=== PATIENT | male | born 1975 | race Caucasian/White ===

== ENCOUNTER 2021-11-09 16:05 | Emergency (ER) | payer MEDICAID ==
[~2021-11-09] VITALS: Ht 175.3 cm; Wt 79.0 kg
[~2021-11-09 16:05] MED LIST: AZAT50TA18 PO; BUPR75TA8 PO; CIPR-202 PO; CLON0.1T PO; HYDR-3965 PO; METR-159 PO; OLAN5TAB29 PO; PRED5TAB PO
[2021-11-09 16:32] VITALS: BP 130/102
[2021-11-09 17:29] LABS: CLARITY,URINE CLEAR (Clear); COLOR,URINE BROWN (Yellow); GLUCOSE, URINE 100 mg/dl (Neg); KETONES,URINE TRACE mg/dl (Neg); LEUKOCYTE ESTERASE ,URINE NEGATIVE (Neg); OCCULT BLOOD,URINE MODERATE (Neg); PH,URINE 6.5 (4.8-8.0); PROTEIN,URINE 100 mg/dl (Neg)
[2021-11-09 17:34] LABS: BASOPHILS # (AUTO) 0.1 X10'3 (0-0.2); BASOPHILS % (AUTO) 0.3 % (0-1); EOSINOPHILS # (AUTO) 0.1 X10'3 (0-0.9); EOSINOPHILS % (AUTO) 0.4 % (0-6); HEMATOCRIT 46.2 % (42.0-52.0); HEMOGLOBIN 15.4 g/dl (14.0-17.9); LYMPHOCYTES # (AUTO) 0.7 X10'3 (1.1-4.8); LYMPHOCYTES % (AUTO) 2.1 % (21-51); MEAN CORPUSCULAR HEMOGLOBIN 29.1 PG (27.0-31.0); MEAN CORPUSCULAR HGB CONC 33.3 g/dL (33.0-36.5); MEAN CORPUSCULAR VOLUME 87.3 FL (78-98); MONOCYTES # (AUTO) 2.1 X10'3 (0-0.9); MONOCYTES % (AUTO) 6.4 % (2-12); NEUTROPHILS # (AUTO) 29.8 X10'3 (1.8-7.7); NEUTROPHILS % (AUTO) 90.8 % (42-75); PLATELET COUNT 519 X10'3 (140-440); RED CELL DISTRIBUTION WIDTH 14.6 % (11.5-14.5)
[2021-11-09 17:44] LABS: ALANINE AMINOTRANSFERASE 18 U/L (12-78); ALBUMIN 2.4 G/DL (3.4-5.0); ALBUMIN/GLOBULIN RATIO 0.5 (1.1-1.5); ALKALINE PHOSPHATASE 69 IU/L (46-116); ANION GAP 9 (8-16); ASPARTATE AMINO TRANSFERASE 21 U/L (10-37); BILIRUBIN,TOTAL 1.1 MG/DL (0.1-1.0); BLOOD UREA NITROGEN 6 MG/DL (7-18); BUN/CREATININE RATIO 7.2 (5.4-32.0); CALCIUM 8.1 MG/DL (8.5-10.1); CHLORIDE 103 MMOL/L (99-107); CREATININE 0.83 MG/DL (0.60-1.10); GLUCOSE 141 MG/DL (70-104); LIPASE 77 U/L (73-393); POTASSIUM 3.7 MMOL/L (3.5-5.1); SODIUM 137 MMOL/L (135-145); TOTAL CARBON DIOXIDE 25.1 MMOL/L (24-32); TOTAL PROTEIN 6.8 G/DL (6.4-8.2); WHITE BLOOD COUNT 32.8 X10'3 (4.5-11.0); eGFR > 90 ML/MIN
[2021-11-09 17:52] LABS: UA COLLECTION TYPE CLN CATCH MIDSTREAM
[2021-11-09 17:53] LABS: BACTERIA,URINE FEW /HPF (Neg); MUCUS STRANDS MODERATE /LPF (Neg); NITRITES, URINE NEGATIVE (Neg); SQUAMOUS EPITHELIAL CELL,UR MODERATE /LPF (FEW)
[2021-11-09 18:12] LABS: PLATELET ESTIMATE INCREASED; TOTAL CELLS COUNTED 100
--- NOTE | 2021-11-09 20:30 | NUR ---
PT NOT IN LOBBY
--- NOTE | 2021-11-09 21:40 | NUR ---
call out to pt to return to the ER if he has left, left voicemail. pt not in lobby at this time
--- NOTE | 2021-11-09 23:34 | NUR ---
PT NOT IN LOBBY
[2021-11-10] MEDS ORDERED: CIPR-202 PO ×2 (13:12)
[2021-11-10] MEDS ORDERED: METR-159 PO ×2 (13:12)
== END 2021-11-09 23:38 | disposition left against medical advice (07) ==
LOC: ER 16:05
DX: R10.84 Generalized abdominal pain (principal); Z53.21 Procedure and treatment not carried out due to patient leaving prior to being seen by health care provider
CPT/HCPCS: 36415; 80053; 81001; 83690; 85007; 85025; 87077; 87088; 87186

== ENCOUNTER 2021-11-10 10:43 | Emergency (ER) | payer MEDICAID ==
[~2021-11-10] VITALS: Ht 175.3 cm; Wt 79.5 kg
[2021-11-10] MEDS ORDERED: metroNIDAZOLE-Flagyl 500mg/NS 100 ML IV STA (12:22)
[2021-11-10] MEDS ORDERED: levoFLOXACIN-Levaquin 500mg/D5 100 ML IV ONE (12:25)
[2021-11-10] MEDS ORDERED: normal saline 1000ML IV soln IVB ONE (12:25)
[2021-11-10] MEDS ORDERED: METR-159 PO ×2 (13:12)
[2021-11-10] MEDS ORDERED: CIPR-202 PO ×2 (13:12)
[2021-11-10] MEDS ORDERED: ketorolac trometh. 30mg/ml inj. IV ONE (13:35)
[2021-11-10 14:15] VITALS: BP 132/78
--- NOTE | 2021-11-12 11:19 | NUR ---
Patient was called regarding lab results. Dr. chauhan had orginally gave a written order to prescribe patient an antibiotic if symptomatic. Patient has stated that his symptoms were consistent with history of colitis and that he did not have any urinary symptoms. However, patient did state that he was still have symptoms such as abd pain. I requested that Dr. chauhan speak with patient regarding symptoms. Dr. Chauhan stated that patient did not need to be placed on another antibiotic and that the flagyl and cipro were enough. No new orders would be prescribed at this time for patient. Patient aware that if symptoms worsen that he can return to ER and be re-evaluated.
== END 2021-11-10 14:45 | disposition home or self-care (01) ==
LOC: ER 10:45
DX: K52.9 Noninfective gastroenteritis and colitis, unspecified (principal); Z79.899 Other long term (current) drug therapy
CPT/HCPCS: 96365; 96366; 96368; 96375; 99284; J1885; J1956; J3490; J7030

== ENCOUNTER 2021-11-13 08:06 | Inpatient (IN) | payer MEDICAID ==
[~2021-11-13] VITALS: Ht 175.3 cm; Wt 68.2 kg
[2021-11-13 08:41] LABS: BASOPHILS # (AUTO) 0.1 X10'3 (0-0.2); EOSINOPHILS # (AUTO) 0.1 X10'3 (0-0.9); EOSINOPHILS % (AUTO) 0.2 % (0-6); NEUTROPHILS # (AUTO) 28.6 X10'3 (1.8-7.7); NEUTROPHILS % (AUTO) 90.8 % (42-75)
[2021-11-13 08:42] LABS: BASOPHILS % (AUTO) 0.2 % (0-1); HEMATOCRIT 48.9 % (42.0-52.0); HEMOGLOBIN 16.1 g/dl (14.0-17.9); LYMPHOCYTES % (AUTO) 3.2 % (21-51); MEAN CORPUSCULAR HEMOGLOBIN 28.5 PG (27.0-31.0); MEAN CORPUSCULAR HGB CONC 32.8 g/dL (33.0-36.5); MEAN CORPUSCULAR VOLUME 86.8 FL (78-98); MEAN PLATELET VOLUME 7.9 FL (7.4-10.4); MONOCYTES # (AUTO) 1.8 X10'3 (0-0.9); MONOCYTES % (AUTO) 5.6 % (2-12); PLATELET COUNT 462 X10'3 (140-440); RED BLOOD COUNT 5.64 X10'6 (4.70-6.10)
[2021-11-13] MEDS ORDERED: normal saline 1000ML IV soln IV ONE (08:45)
[2021-11-13] MEDS ORDERED: piperacillin/tazo 3.375gm/50ml 50 ML IV ONE (08:45)
[2021-11-13] MEDS ORDERED: metoclopramide 5 mg/ml inj IV ONE (08:50)
[2021-11-13] MEDS ORDERED: famotidine/PF 10 mg/ml inj IV ONE (08:50)
[2021-11-13 08:53] LABS: ALANINE AMINOTRANSFERASE 21 U/L (12-78); ALBUMIN 2.9 G/DL (3.4-5.0); ALBUMIN/GLOBULIN RATIO 0.6 (1.1-1.5); ALKALINE PHOSPHATASE 83 IU/L (46-116); ANION GAP 9 (8-16); ASPARTATE AMINO TRANSFERASE 38 U/L (10-37); BILIRUBIN,TOTAL 1.3 MG/DL (0.1-1.0); BLOOD UREA NITROGEN 8 MG/DL (7-18); BUN/CREATININE RATIO 7.2 (5.4-32.0); CALCIUM 8.9 MG/DL (8.5-10.1); CHLORIDE 93 MMOL/L (99-107); CREATININE 1.11 MG/DL (0.60-1.10); GLUCOSE 102 MG/DL (70-104); POTASSIUM 3.9 MMOL/L (3.5-5.1); SODIUM 126 MMOL/L (135-145); TOTAL CARBON DIOXIDE 24.4 MMOL/L (24-32); TOTAL PROTEIN 7.9 G/DL (6.4-8.2); eGFR 72 ML/MIN
[2021-11-13 08:56] LABS: WHITE BLOOD COUNT 31.5 X10'3 (4.5-11.0)
[2021-11-13] MEDS ORDERED: IOHEXOL 12MG/ML oral solution 500 ML BOTTLE PO ONE (09:25)
[2021-11-13 09:30] LABS: PLATELET ESTIMATE INCREASED; TOTAL CELLS COUNTED 100
[2021-11-13] MEDS ORDERED: diazepam inj 5 MG/ML inj. IV ONE (12:55)
[2021-11-13] MEDS ORDERED: LIDOcaine 2% 10ml TOPICAL JELLY (Urojet) MM ONE (13:25)
[2021-11-13] MEDS ORDERED: morphine 4 MG/ML inj SYRINge IV ONE (13:35)
--- NOTE | 2021-11-13 14:00 | NUR ---
ATTEMPTED NG WITH A 16 AND 18. UROJET USED. NG WAS UNSUCCESSFUL. MD AWARE. ANOTHER NURSE WILL ATTEMPT. UNABLE TO ADVANCE PAST THE NOSTRIL
--- NOTE | 2021-11-13 14:08 | NUR ---
RELIEVING RN FOR BREAK, PT IS RESTING QUIETLY ON GURNEY, RESP EVEN AND UNLABORED, PT WANTS TO WAIT UNTIL FAMILY IS HERE TO ATTEMPT NGTUBE AGAIN, ANOTHER RN ATTEMPTED 4X PER PT, NO N/V AT THIS TIME
--- NOTE | 2021-11-13 14:28 | NUR ---
ATTEMPTED NGTUBE 2TIMES, NO SUCCESS, UNABLE TO ADVANCE TUBE DUE TO POSSIBLE RESTRICTION IN NOSE
[2021-11-13] MEDS ORDERED: POTASSIUM BICARB 20meq eff tab 20 MEQ TABLET.EFF PO PRN ×2 (14:30)
[2021-11-13] MEDS ORDERED: magnesium 4gm in 100ml NS 100 ML IV PRN (14:30)
[2021-11-13] MEDS ORDERED: magnesium Cl slow-release 64mg tablet PO PRN (14:30)
[2021-11-13] MEDS ORDERED: ondansetron/PF 4mg/2ml inj IV PRN (14:30)
[2021-11-13] MEDS: normal saline 1000ml 1,000 ML IV SCH (14:30)
[2021-11-13] MEDS ORDERED: magnesium 2GM in 50ml NS 50 ML IV PRN (14:30)
[2021-11-13] MEDS ORDERED: potassium CL 10mEq/100ml bag 100 ML IV PRN (14:30)
[2021-11-13 15:09] LABS: MAGNESIUM 1.6 MG/DL (1.5-2.4); POTASSIUM 3.5 MMOL/L (3.5-5.1)
[2021-11-13] MEDS ORDERED: AZAT50TA18 PO (15:56)
[2021-11-13] MEDS ORDERED: CIPR-202 PO (16:23)
[2021-11-13] MEDS ORDERED: PRED5TAB49 PO (16:23)
[2021-11-13] MEDS ORDERED: METR-349 PO (16:23)
--- NOTE | 2021-11-13 16:27 | NUR ---
Patient in room ORTHO 4022. I have received report from Delmi PARTIDA and had the opportunity to ask questions and assume patient care.
[2021-11-13 16:30] VITALS: BP 136/73
--- NOTE | 2021-11-13 16:43 | NUR ---
patient states he is not nauseous or feels like he needs to vomit. Abdomen distended, patient reports 2 liquidy BM in ED. will continue to monitor
--- NOTE | 2021-11-13 17:00 | NUR ---
patients HR 130, temp 100.2 Dr yunior parisi. will continue to monitor.
--- NOTE | 2021-11-13 17:30 | NUR ---
Patient rechecked HR [address] Hampton paged order given for blood cultures, UA, chest xray, and levaquin 500mg Iv. orders placed . report given to Sharmin PARTIDA
[2021-11-13 18:00] VITALS: BP 136/73
[2021-11-13] MEDS: acetaminophen 325mg tablet PO PRN (18:03)
[2021-11-13] MEDS: K and/or MAG REPLACEMENT MC SCH (20:00)
[2021-11-13] MEDS: levoFLOXACIN-Levaquin 500mg/D5 100 ML IV SCH (20:03)
[2021-11-13 21:42] LABS: CLARITY,URINE CLEAR (Clear); COLOR,URINE YELLOW (Yellow); GLUCOSE, URINE NEGATIVE (Neg); KETONES,URINE >=80 mg/dl (Neg); LEUKOCYTE ESTERASE ,URINE NEGATIVE (Neg); NITRITES, URINE NEGATIVE (Neg); OCCULT BLOOD,URINE MODERATE (Neg); PROTEIN,URINE NEGATIVE (Neg); UROBILINOGEN,URINE 0.2 E.U/dL (0.2-1.0)
[2021-11-13 21:47] LABS: UA COLLECTION TYPE NON-SPECIFIED
[2021-11-13 21:54] LABS: BACTERIA,URINE FEW /HPF (Neg); MUCUS STRANDS FEW /LPF (Neg); SQUAMOUS EPITHELIAL CELL,UR NONE SEEN /LPF (FEW); WBC,URINE 0-4 /HPF (0-4)
[2021-11-13 22:00] VITALS: BP 123/77
[2021-11-13 22:33] LABS: OCCULT BLOOD STOOL NEGATIVE (Neg)
[2021-11-14] MEDS: normal saline 1000ml 1,000 ML IV SCH ×2 (00:40→16:08)
[2021-11-14] MEDS: metroNIDAZOLE-Flagyl 500mg/NS 100 ML IV SCH ×4 (00:40→23:27)
[2021-11-14 06:00] VITALS: BP 129/95
[2021-11-14 06:06] LABS: BASOPHILS # (AUTO) 0.1 X10'3 (0-0.2); BASOPHILS % (AUTO) 0.5 % (0-1); EOSINOPHILS # (AUTO) 0.1 X10'3 (0-0.9); EOSINOPHILS % (AUTO) 0.3 % (0-6); HEMOGLOBIN 12.5 g/dl (14.0-17.9); LYMPHOCYTES # (AUTO) 0.7 X10'3 (1.1-4.8); LYMPHOCYTES % (AUTO) 2.9 % (21-51); MEAN CORPUSCULAR HGB CONC 32.9 g/dL (33.0-36.5); MEAN CORPUSCULAR VOLUME 84.9 FL (78-98); MEAN PLATELET VOLUME 7.9 FL (7.4-10.4); MONOCYTES # (AUTO) 1.5 X10'3 (0-0.9); NEUTROPHILS # (AUTO) 23.2 X10'3 (1.8-7.7); NEUTROPHILS % (AUTO) 90.3 % (42-75); PLATELET COUNT 359 X10'3 (140-440); RED BLOOD COUNT 4.47 X10'6 (4.70-6.10); RED CELL DISTRIBUTION WIDTH 14.9 % (11.5-14.5)
[2021-11-14 06:08] LABS: ANION GAP 12 (8-16); BLOOD UREA NITROGEN 7 MG/DL (7-18); BUN/CREATININE RATIO 10.4 (5.4-32.0); CHLORIDE 102 MMOL/L (99-107); CREATININE 0.67 MG/DL (0.60-1.10); GLUCOSE 82 MG/DL (70-104); MAGNESIUM 1.7 MG/DL (1.5-2.4); SODIUM 134 MMOL/L (135-145); TOTAL CARBON DIOXIDE 20.5 MMOL/L (24-32); eGFR > 90 ML/MIN
[2021-11-14 06:13] LABS: WHITE BLOOD COUNT 25.6 X10'3 (4.5-11.0)
--- NOTE | 2021-11-14 06:49 | NUR ---
Patient in room ORTHO 4022. I have received report from Sharmin RN and had the opportunity to ask questions and assume patient care.
[2021-11-14 07:41] LABS: PLATELET ESTIMATE NORMAL; TOTAL CELLS COUNTED 100
[2021-11-14] MEDS: K and/or MAG REPLACEMENT MC SCH ×2 (08:00→20:00)
[2021-11-14] MEDS: levoFLOXACIN-Levaquin 500mg/D5 100 ML IV SCH (09:12)
[2021-11-14 10:00] VITALS: BP 123/84
[2021-11-14] MEDS: morphine 4 MG/ML inj SYRINge IV PRN ×2 (10:36→16:08)
[2021-11-14 14:00] VITALS: BP 131/81
--- NOTE | 2021-11-14 16:00 | NUR ---
PAGER ID: [phone] MESSAGE: [id number] Chantal Luciano We need a Covid test ordered, due to his partner testing positive for Covid Edilma [id number]
--- NOTE | 2021-11-14 16:22 | NUR ---
PAGER ID: [phone] MESSAGE: Katarzyna [id number] re: Luciano Chantal in [id number]. Can I get an order for morphine iv for pain? Pt only had a two dose order. Thank you
[2021-11-14] MEDS ORDERED: morphine 2 MG/ML inj. syringe IV PRN (16:25)
[2021-11-14 18:00] VITALS: BP 135/83
--- NOTE | 2021-11-14 18:26 | NUR ---
Patient in room ORTHO 4022. I have received report from alexa Colón and had the opportunity to ask questions and assume patient care.
[2021-11-14] MEDS: methylPREDNISolone sod succ/PF 40mg inj. IV SCH (20:55)
[2021-11-14] MEDS: morphine 2 MG/ML inj. syringe IV PRN (20:55)
[2021-11-14 22:00] VITALS: BP 124/73
[2021-11-14] MEDS: OLANZapine 5mg rapidly disint. tablet PO SCH (22:13)
[2021-11-15] MEDS: normal saline 1000ml 1,000 ML IV SCH ×3 (03:00→20:42)
[2021-11-15 06:00] VITALS: BP 137/71
[2021-11-15 06:25] LABS: BASOPHILS % (AUTO) 0.2 % (0-1); EOSINOPHILS % (AUTO) 0 % (0-6); HEMOGLOBIN 13.7 g/dl (14.0-17.9); LYMPHOCYTES # (AUTO) 0.3 X10'3 (1.1-4.8); LYMPHOCYTES % (AUTO) 1.8 % (21-51); MEAN CORPUSCULAR HEMOGLOBIN 28.7 PG (27.0-31.0); MEAN CORPUSCULAR HGB CONC 32.6 g/dL (33.0-36.5); MEAN CORPUSCULAR VOLUME 88.1 FL (78-98); MEAN PLATELET VOLUME 8.9 FL (7.4-10.4); MONOCYTES # (AUTO) 0.3 X10'3 (0-0.9); MONOCYTES % (AUTO) 1.7 % (2-12); NEUTROPHILS # (AUTO) 16.2 X10'3 (1.8-7.7); NEUTROPHILS % (AUTO) 96.3 % (42-75); PLATELET COUNT 307 X10'3 (140-440); RED BLOOD COUNT 4.77 X10'6 (4.70-6.10); RED CELL DISTRIBUTION WIDTH 14.7 % (11.5-14.5); WHITE BLOOD COUNT 16.8 X10'3 (4.5-11.0)
--- NOTE | 2021-11-15 06:26 | NUR ---
Problems reprioritized. Patient report given, questions answered & plan of care reviewed with alexa Colón.
--- NOTE | 2021-11-15 06:36 | NUR ---
Patient in room ORTHO 4022. I have received report from Di PARTIDA and had the opportunity to ask questions and assume patient care.
[2021-11-15] MEDS: K and/or MAG REPLACEMENT MC SCH ×2 (07:09→20:00)
[2021-11-15] MEDS: metroNIDAZOLE-Flagyl 500mg/NS 100 ML IV SCH ×2 (07:36→16:21)
[2021-11-15 07:40] LABS: ALBUMIN 1.8 G/DL (3.4-5.0); ANION GAP 13 (8-16); BLOOD UREA NITROGEN 8 MG/DL (7-18); BUN/CREATININE RATIO 13.3 (5.4-32.0); CALCIUM 8.3 MG/DL (8.5-10.1); CHLORIDE 105 MMOL/L (99-107); GLUCOSE 139 MG/DL (70-104); POTASSIUM 4.5 MMOL/L (3.5-5.1); SODIUM 136 MMOL/L (135-145); TOTAL CARBON DIOXIDE 17.9 MMOL/L (24-32); eGFR > 90 ML/MIN
[2021-11-15] MEDS: buPROPion 75mg tablet PO SCH (08:53)
[2021-11-15] MEDS: methylPREDNISolone sod succ/PF 40mg inj. IV SCH ×2 (08:53→20:40)
[2021-11-15] MEDS: levoFLOXACIN-Levaquin 500mg/D5 100 ML IV SCH (08:53)
[2021-11-15] MEDS: cloNIDine 0.1 mg tablet PO SCH (08:53)
[2021-11-15] MEDS: acetaminophen 325mg tablet PO PRN (09:06)
[2021-11-15 10:00] VITALS: BP 118/74
[2021-11-15 14:00] VITALS: BP 124/77
[2021-11-15] MEDS: morphine 2 MG/ML inj. syringe IV PRN (15:33)
[2021-11-15 18:00] VITALS: BP 134/84
--- NOTE | 2021-11-15 18:30 | NUR ---
Patient in room ORTHO 4022. I have received report from STEPHANIE PARTIDA and had the opportunity to ask questions and assume patient care.
[2021-11-15] MEDS: OLANZapine 5mg rapidly disint. tablet PO SCH (20:41)
[2021-11-15 22:00] VITALS: BP 129/80
[2021-11-16] MEDS: metroNIDAZOLE-Flagyl 500mg/NS 100 ML IV SCH ×4 (00:32→23:46)
[2021-11-16] MEDS: normal saline 1000ml 1,000 ML IV SCH ×3 (03:09→22:30)
[2021-11-16 06:00] VITALS: BP 108/63
--- NOTE | 2021-11-16 06:30 | NUR ---
Problems reprioritized. Patient report given, questions answered & plan of care reviewed with LAM PARTIDA.
[2021-11-16 07:14] LABS: BASOPHILS % (AUTO) 0.2 % (0-1); EOSINOPHILS % (AUTO) 0 % (0-6); HEMATOCRIT 35.4 % (42.0-52.0); HEMOGLOBIN 11.5 g/dl (14.0-17.9); LYMPHOCYTES # (AUTO) 0.5 X10'3 (1.1-4.8); LYMPHOCYTES % (AUTO) 2.3 % (21-51); MEAN CORPUSCULAR HGB CONC 32.5 g/dL (33.0-36.5); MEAN CORPUSCULAR VOLUME 86.3 FL (78-98); MEAN PLATELET VOLUME 8.2 FL (7.4-10.4); MONOCYTES # (AUTO) 0.9 X10'3 (0-0.9); MONOCYTES % (AUTO) 4.4 % (2-12); NEUTROPHILS # (AUTO) 18.4 X10'3 (1.8-7.7); NEUTROPHILS % (AUTO) 93.1 % (42-75); PLATELET COUNT 399 X10'3 (140-440); RED CELL DISTRIBUTION WIDTH 14.8 % (11.5-14.5); WHITE BLOOD COUNT 19.7 X10'3 (4.5-11.0)
[2021-11-16 07:16] LABS: ALBUMIN 1.7 G/DL (3.4-5.0); ANION GAP 6 (8-16); BLOOD UREA NITROGEN 5 MG/DL (7-18); BUN/CREATININE RATIO 8.1 (5.4-32.0); CALCIUM 8.3 MG/DL (8.5-10.1); CHLORIDE 112 MMOL/L (99-107); CREATININE 0.62 MG/DL (0.60-1.10); GLUCOSE 161 MG/DL (70-104); MAGNESIUM 2.1 MG/DL (1.5-2.4); POTASSIUM 4.2 MMOL/L (3.5-5.1); SODIUM 142 MMOL/L (135-145); TOTAL CARBON DIOXIDE 24.1 MMOL/L (24-32); eGFR > 90 ML/MIN
[2021-11-16] MEDS: methylPREDNISolone sod succ/PF 40mg inj. IV SCH ×2 (07:49→19:40)
[2021-11-16] MEDS: cloNIDine 0.1 mg tablet PO SCH (07:50)
[2021-11-16] MEDS: buPROPion 75mg tablet PO SCH (07:50)
[2021-11-16] MEDS: K and/or MAG REPLACEMENT MC SCH ×2 (08:00→20:00)
[2021-11-16] MEDS: levoFLOXACIN-Levaquin 500mg/D5 100 ML IV SCH (09:40)
[2021-11-16 09:49] VITALS: BP 131/80
[2021-11-16 18:00] VITALS: BP 120/70
--- NOTE | 2021-11-16 18:30 | NUR ---
Patient in room ORTH[facility] 4006. I have received report from LAM PARTIDA and had the opportunity to ask questions and assume patient care.
[2021-11-16] MEDS: OLANZapine 5mg rapidly disint. tablet PO SCH (19:43)
[2021-11-16 22:00] VITALS: BP 143/90
[2021-11-17 05:00] VITALS: BP 106/70
[2021-11-17 06:01] LABS: BASOPHILS # (AUTO) 0.1 X10'3 (0-0.2); BASOPHILS % (AUTO) 0.9 % (0-1); EOSINOPHILS % (AUTO) 0 % (0-6); HEMATOCRIT 34.4 % (42.0-52.0); HEMOGLOBIN 11.2 g/dl (14.0-17.9); LYMPHOCYTES # (AUTO) 0.4 X10'3 (1.1-4.8); LYMPHOCYTES % (AUTO) 3.9 % (21-51); MEAN CORPUSCULAR HEMOGLOBIN 28.1 PG (27.0-31.0); MEAN CORPUSCULAR HGB CONC 32.7 g/dL (33.0-36.5); MEAN CORPUSCULAR VOLUME 86.1 FL (78-98); MEAN PLATELET VOLUME 8.3 FL (7.4-10.4); MONOCYTES # (AUTO) 0.7 X10'3 (0-0.9); MONOCYTES % (AUTO) 6.6 % (2-12); NEUTROPHILS # (AUTO) 9.1 X10'3 (1.8-7.7); NEUTROPHILS % (AUTO) 88.6 % (42-75); PLATELET COUNT 366 X10'3 (140-440); RED BLOOD COUNT 3.99 X10'6 (4.70-6.10); RED CELL DISTRIBUTION WIDTH 14.7 % (11.5-14.5); WHITE BLOOD COUNT 10.3 X10'3 (4.5-11.0)
[2021-11-17 06:07] LABS: ALBUMIN 1.8 G/DL (3.4-5.0); ANION GAP 10 (8-16); BLOOD UREA NITROGEN 10 MG/DL (7-18); BUN/CREATININE RATIO 15.6 (5.4-32.0); CALCIUM 8.1 MG/DL (8.5-10.1); CHLORIDE 109 MMOL/L (99-107); CREATININE 0.64 MG/DL (0.60-1.10); GLUCOSE 141 MG/DL (70-104); MAGNESIUM 1.9 MG/DL (1.5-2.4); SODIUM 142 MMOL/L (135-145); eGFR > 90 ML/MIN
--- NOTE | 2021-11-17 06:15 | NUR ---
Patient in room ORTH[facility] 4006. I have received report from HELGA Bliss and had the opportunity to ask questions and assume patient care.
--- NOTE | 2021-11-17 06:30 | NUR ---
Problems reprioritized. Patient report given, questions answered & plan of care reviewed with PROSPER PARTIDA.
--- NOTE | 2021-11-17 06:53 | NUR ---
Pt states he wants 'to be left alone today'. States he will take medications but is refusing his physical assessment, per pt 'my physical assessment is - I'm fine'.
[2021-11-17] MEDS: K and/or MAG REPLACEMENT MC SCH (08:00)
[2021-11-17] MEDS: buPROPion 75mg tablet PO SCH (08:49)
[2021-11-17] MEDS: cloNIDine 0.1 mg tablet PO SCH (08:49)
[2021-11-17] MEDS: metroNIDAZOLE-Flagyl 500mg/NS 100 ML IV SCH (08:50)
[2021-11-17] MEDS: methylPREDNISolone sod succ/PF 40mg inj. IV SCH (08:57)
[2021-11-17 10:00] VITALS: BP 125/76
[2021-11-17] MEDS ORDERED: levoFLOXACIN 750MG TABLET PO SCH (11:00)
[2021-11-17] MEDS ORDERED: LEVO750T46 PO (13:41)
[2021-11-17] MEDS ORDERED: METR-159 PO (13:41)
[2021-11-17] MEDS ORDERED: PRED10TA23 PO (13:41)
--- NOTE | 2021-11-17 14:30 | NUR ---
Pt discharged to home, with all belongings, in private vehicle accompanied by friend. Discharge instructions and medications reviewed. New prescriptions e-scripted to [facility] on [address]. Pt instructed to follow up with PCP, and to return to ED if symptoms return. Pt states understanding and willingness to comply with discharge instructions. IV DC'd, cannula intact. Pt escorted to front lobby by RN.
[2021-11-17] MEDS ORDERED: metroNIDAZOLE 500mg tablet PO SCH (16:00)
== END 2021-11-17 14:30 | disposition home or self-care (01) | DRG 245 ==
LOC: ER 08:07 → ED HOLD 14:32 → UNDOADMIN 14:32 → ED HOLD 16:20 → ORTHO 4S 16:20 → ED HOLD 19:08 → ORTHO 4S 19:08
PROVIDERS: ADMIT Internal Medicine; ATTEND Internal Medicine
DX: K50.112 Crohn's disease of large intestine with intestinal obstruction (principal); E87.1 Hypo-osmolality and hyponatremia; E86.0 Dehydration; Z20.822 Contact with and (suspected) exposure to COVID-19; F17.210 Nicotine dependence, cigarettes, uncomplicated; F31.9 Bipolar disorder, unspecified; T38.0X5A Adverse effect of glucocorticoids and synthetic analogues, initial encounter; Z79.899 Other long term (current) drug therapy; Y92.89 Other specified places as the place of occurrence of the external cause
CPT/HCPCS: 36415; 71045; 74176; 80048; 80053; 81001; 82272; 83605; 83735; 84132; 84145; 85007; 85025; 87040; 87081; 93005; 99291; G0378; J1956; J2270; J2405; J2543; J2765; J2920; J3360; J3490; J7030; J7500

== ENCOUNTER 2021-12-31 12:02 | Emergency (ER) | payer MEDICAID ==
[~2021-12-31 12:02] MED LIST changes: -CIPR-202 PO; -HYDR-3965 PO; +LEVO750T46 PO; -PRED5TAB PO
== END 2021-12-31 14:24 | disposition left against medical advice (07) ==
LOC: ER 12:03
DX: Z53.21 Procedure and treatment not carried out due to patient leaving prior to being seen by health care provider (principal)